=== PATIENT | female | born 1950 | race Asian ===

== ENCOUNTER 2017-05-18 19:14 | Emergency (ER) | payer OTHER ==
[2017-05-18 19:40] LABS: ALKALINE PHOSPHATASE 123 U/L (38-126); AST 368 U/L (14-36); BILIRUBIN, TOTAL 0.4 mg/dL (0.2-1.3); BLOOD UREA NITROGEN 11 mg/dL (7-17); CALCIUM 9.9 mg/dL (8.4-10.2); CHLORIDE 102 mmol/L (98-107); EST GLOMERULAR FILTRATION RATE 52 mL/min; LIPASE 275 U/L (23-300); SODIUM 141 mmol/L (137-145)
[2017-05-18 19:42] LABS: GLUCOSE 350 mg/dL (70-100); NEUTROPHILS# 0.9 X 10^3uL (2.6-6.7)
[2017-05-18 19:45] LABS: BASOPHILS 0.5 % (0.0-2.0); EOSINOPHILS 0.4 % (0.0-6.0); HEMATOCRIT 40.4 % (36.0-48.0); HEMOGLOBIN 13.1 g/dL (12.0-16.0); INR 1.1; LYMPHOCYTES# 6.8 X 10^3uL (0.8-3.8); MEAN CELL VOLUME 93.7 fL (80.0-100.0); MEAN CORPUS. HGB CONCENTRATION 32.5 g/dL (32.0-36.0); MEAN CORPUSCULAR HEMOGLOBIN 30.4 pg (29.0-35.0); MONOCYTES 9.5 % (2.0-10.0); MONOCYTES# 0.8 X 10^3uL (0.2-1.0); NEUTROPHILS 10.7 % (54.0-75.0); PLATELET COUNT 230 X 10^3uL (130-440); RED BLOOD COUNT 4.31 X 10^6uL (4.20-6.10); RED CELL DISTRIBUTION WIDTH 13.5 % (11.5-14.5); WHITE BLOOD COUNT 8.5 X 10^3uL (3.9-10.7)
[2017-05-18 19:55] LABS: LYMPHOCYTES 78.9 % (20.0-40.0)
[2017-05-18] MEDS ORDERED: FENTANYL 100 MCG/2 ML VIAL ONE (19:56)
[2017-05-18 20:00] LABS: ARTERIAL BLD GAS O2 SATURATION 52 % (95-98); ARTERIAL BLOOD GAS BASE EXCESS -22 (-2-+3); ARTERIAL BLOOD GAS HCO3 14.3 mmol/L (22-26); ARTERIAL BLOOD GAS PCO2 > 100 mmHg (35-45); ARTERIAL BLOOD GAS PO2 58 mmHg (80-105); ARTERIAL BLOOD GAS TOTAL CO2 18 mmHg (23-27)
[2017-05-18] MEDS ORDERED: EPINEPHrine 1:10,000 1 MG/10 ML SYR ONE (20:31)
--- NOTE | 2017-05-18 20:33 | ER PHYSICIAN DOCUMENTATION ---
Physician Documentation [facility] Name:Elizabeth Hernandez Age:66 yrs Sex:Female :1950 Arrival Date:05/18/2017 Time:19:14 BedTrauma-A Private MD: Antonio Thomas Disposition: 05/18 22:01 Critical Care:. graciela Disposition: 05/18/17 20:04 Transfer ordered to [facility]. Diagnosis is Cardiac Arrest. - Reason for transfer: Specialty. - Accepting physician is Dr. De Leon. - Condition is Critical. - Problem is new. - Symptoms have improved. COBRA Form completed? Yes Transfer - Mode of Transportation Helicopter HPI: 19:39 This 66 yrs old Female presents to ER via EMS with complaints of jm Unresponsive. 19:39 Preceding the arrest, the patient collapsed, was dyspneic. The arrest occurred on a street. in a car. Pre-hospital course: The arrest was witnessed by family. Bystanders at the scene did not perform CPR. EMS care prior to arrival: intubation Isaias. oxygen, ACLS details: Initial rhythm was PEA. The presenting rhythm is normal sinus rhythm. Medications given by EMS prior to arrival - Epinephrine IV x 3 doses. The patient has not experienced similar symptoms in the past. The patient has not recently seen a physician. Pt was in the bathroom, walked out and collapsed in the car. She was very sweaty c/o of SOB/CP. Pt soon stopped breathing, . Historical: - Allergies: No known drug Allergies; - Home Meds: 1. sertaline 2. venlafaxine oral - PMHx: HIGH CHOLESTEROL; THYROID PROBLEM; LUPUS; - PSHx: KNEE SURGERY; SHOULDER SURGERY; - Ebola Screening: : Patient negative for fever greater than or equal to 101.5 degrees Fahrenheit, and additional compatible Ebola Virus Disease symptoms. - Immunization history: Flu Vaccine < 1 year. - Social history: Smoking status: Patient states was never smoker of tobacco. ROS: 19:42 Unable to obtain ROS due to obtunded state, patient is on ventilator, as above in HPI. Exam: 19:42 Constitutional: The patient appears obese, in obvious distress. 19:42 Eyes: Periorbital structures: appear normal, Pupils: equal, round, and reactive to light and accomodation. 19:42 ENT: Mouth: is normal, Dental exam: normal. 19:42 Cardiovascular: Rate: normal, Rhythm: regular, Pulses: no pulse deficits are appreciated. 19:42 Respiratory: Respirations: shallow respirations, that is severe, Breath sounds: are normal. 19:42 Abdomen/GI: Inspection: distension, that is moderate, Bowel sounds: normal, Palpation: abdomen is soft and non-tender. 19:42 Musculoskeletal/extremity: Extremities: grossly normal except: Pulses: are normal with no appreciated deficits. 19:42 Neuro: no movement. unable to examine. Vital Signs: 19:18 BP 127 / 73; Pulse 100; Resp 12; Pulse Ox 90% on 15 lpm ETT ambu; rh 19:30 BP 180 / 100; Pulse 99; Resp 30; Pulse Ox 100% on ETT vent; rh 19:47 BP 119 / 91; Pulse 106; Resp 30; Pulse Ox 100% on 15% FiO2 ETT vent; rh 20:32 BP 100 / 64; Pulse 98; Resp 20; Pulse Ox 93% on 15% FiO2 ETT vent; rh Trauma Score (Adult): 19:20 Eye Response: none(0); Verbal Response: none(0); Motor Response: none(0); Systolic BP: rh None(0); Respiratory Rate: None(0); Estefani Score: 3; Trauma Score: 0 20:20 Eye Response: none(0); Verbal Response: none(0); Motor Response: none(0); Systolic BP: rh > 89 mm Hg(4); Respiratory Rate: 10 to 29 per min(4); Estefani Score: 3; Trauma Score: 8 Procedures: 19:47 Intubation: Ventilated with 100% NRB prior to procedure. O2 saturation prior to procedure was 100 %. Intubated orally using # 4 Solo blade with 7.5 mm ETT. Successful on second attempt. Ventilated with ventilator. Tube secured with ETT rosen Placement verified by CXR, auscultating bilateral breath sounds, Patient tolerated well. MDM: 19:39 Patient medically screened. 20:00 Differential diagnosis: cardiac arrest. Data reviewed: vital signs, nurses notes, old medical records, lab test result(s), EKG, radiologic studies, and as a result, I will *Transfer Patient. Test interpretation: by ED physician or midlevel provider: plain radiologic studies, ECG. Counseling: I had a detailed discussion with the patient and/or guardian regarding: the historical points, exam findings, and any diagnostic results supporting the discharge/admit diagnosis, lab results, radiology results, the need to transfer to another facility. ECG:. Response to treatment: the patient's symptoms have markedly improved after treatment. Physician consultation: Dr De Leon was called at 19:50, was contacted at 19:55, regarding patient's condition. ED course: Pt here after CPR x3 rounds already started. After Rhythm check, pt in NSR w a good BP and agonal respirations. Pt intubated and EKG did not show STEMI. Chopper here to take pt to [facility]. Dr. De Leon has accepted. . 21:10 EKG attached 05/18 19:43 Order name: BASIC METABOLIC PANEL; Complete Time: 20:05 EDKS 05/18 19:43 Order name: ALKALINE PHOSPHATASE; Complete Time: 20:05 [facility] 05/18 19:43 Order name: AST; Complete Time: 20:05 [facility] 05/18 19:43 Order name: BILIRUBIN, TOTAL; Complete Time: 20:05 [facility] 05/18 19:43 Order name: LIPASE; Complete Time: 20:05 [facility] 05/18 19:50 Order name: PROTIME/INR; Complete Time: 20:05 [facility] 05/18 19:56 Order name: CBC AUTO DIF, MDIF/RMOR IF IND; Complete Time: 20:05 [facility] 05/18 20:01 Order name: ARTERIAL BLOOD GAS; Complete Time: 20:05 [facility] 05/19 09:03 Order name: CHEST; [place] [id number] [facility] 05/18 19:29 Order name: EKG - 12 Lead; Complete Time: 19:31 05/18 19:29 Order name: Cardiac Monitoring - Continuous; Complete Time: 19:31 05/18 19:29 Order name: Pulse Ox Continuous; Complete Time: 19:31 05/18 19:29 Order name: Matthew; Complete Time: 19:34 05/18 20:32 Order name: IV large bore X 2; Complete Time: 20:32 rh EC:00 Rhythm is regular with Right bundle branch block. QT interval is normal. No Q waves. T jm waves are Normal. No ST changes noted. Dispensed Medications: : Drug: NS 0.9% 1000 ml; Route: IV; Rate: bolus; Site: right antecubital; rh 20:00 Follow up: IV Status: Completed infusion; IV Intake: 1000ml rh 19:28 Drug: Etomidate (50kg) 10 mg; {Note: ADMINISTERED BY CASE CLOSET ORGANIZER.} Route: IVP; Site: rh left antecubital; 20:29 Follow up: Response: No adverse reaction rh 19:30 Drug: Succinylcholine (ADULT) 1 mg/kg; {Note: ADMINISTERED BY DARIUS LAO RN.} Route: rh IVP; Site: left antecubital; 20:30 Follow up: Response: No adverse reaction rh 19:30 Drug: NS 0.9% 1000 ml; {Note: RIGHT IO .} Route: IV; Rate: bolus; Site: right wrist; rh 20:00 Follow up: IV Status: Completed infusion; IV Intake: 1000ml rh 19:43 Drug: fentaNYL (PF) 100 mcg; {Note: ADMNISTERED BY MELANIE ALLEN IN THE RIGHT AC.} rh Route: IVP; Infused Over: 3 mins; Site: right antecubital; 20:31 Follow up: Response: No adverse reaction rh 19:46 Drug: Vecuronium 0.1 mg/kg; {Note: ADMINISTERED BY MELANIE ALLEN RN ED.} Route: IVP; rh Site: left antecubital; 20:29 Follow up: Response: No adverse reaction rh 19:50 Drug: Sodium Bicarbonate 1 amp; Route: IVP; Site: right antecubital; rh 20:29 Follow up: Response: No adverse reaction rh 20:20 Drug: NS 0.9% 1000 ml; Route: IV; Rate: bolus; Site: left antecubital; rh 20:31 Follow up: IV Status: Infusing continued upon transfer rh 20:22 Drug: NS 0.9% 1000 ml; Route: IV; Rate: bolus; Site: right antecubital; rh 20:31 Follow up: IV Status: Infusing continued upon transfer Critical care time excluding procedures: 22:01 Critical care time: Bedside Care: 60 minutes, Consultation: 20 minutes, Family graciela Intervention: 10 minutes. Total time: 90 minutes Signatures: Antoino Gutiérrez MD MD jm Hofsess, Rachel
--- NOTE | 2017-05-18 20:33 | ER NURSING DOCUMENTATION ---
Nurse's Notes [facility] Name:Elizabeth Hernandez Age:66 yrs Sex:Female :1950 Arrival Date:05/18/2017 Time:19:14 BedTrauma-A Private MD: Diagnosis:Cardiac Arrest Presentation: 05/18 19:26 Presenting complaint: EMS states: PT visiting from [place], she was feeling SOB and rh went into the bathroom. She came out of the bathroom, SOB, diaphoretic, sweaty and c/o chest pain. PT then collapsed on the ground unresponsive and pulseless. Transition of care: Home. 19:26 Acuity: RIK 1 rh 19:26 Method Of Arrival: EMS: 420 rh 19:33 Care prior to arrival: CPR manually performed by EMS. Compressions began at 18:45. rh 20:00 Care prior to arrival: assisted ventilation, oral airway placed, Placed on backboard. rh IV initiated. Oxygen administered. IV Fluids given by EMS NS 500 ml Medication(s) given: 3 rounds of epi. Triage Assessment: 19:36 Neuro: Level of Consciousness is unresponsive, Pupils are non-reactive. Cardiovascular: rh Capillary refill is > 3 seconds. Cardiovascular: Pulses are palpable in right radial artery, right posterior tibial artery, left radial artery and left posterior tibial artery. Respiratory: Airway via oral intubation Trachea midline. GI: Abdomen is obese. Historical: - Allergies: No known drug Allergies; - Home Meds: 1. sertaline 2. venlafaxine oral - PMHx: HIGH CHOLESTEROL; THYROID PROBLEM; LUPUS; - PSHx: KNEE SURGERY; SHOULDER SURGERY; - Ebola Screening: : Patient negative for fever greater than or equal to 101.5 degrees Fahrenheit, and additional compatible Ebola Virus Disease symptoms. - Immunization history: Flu Vaccine < 1 year. - Social history: Smoking status: Patient states was never smoker of tobacco. Screenin:40 Infectious Disease Risk Unable to Obtain. Abuse screen: Unable to Obtain. Nutritional rh screening: Unable to Obtain. Assessment: 19:12 Reassessment: COLD BLUE PAGED OVERHEAD. rh 19:16 CPR assessment: unresponsive, no respiratory effort, intubated, Ambu ventilation, rh pulses present w/ compressions. Cardiac rhythm is PEA. 19:19 Reassessment: PADS PLACED ON THE PATIENT. rh 19:53 Reassessment: PT family at bedside. rh Vital Signs: 19:18 BP 127 / 73; Pulse 100; Resp 12; Pulse Ox 90% on 15 lpm ETT ambu; rh 19:30 BP 180 / 100; Pulse 99; Resp 30; Pulse Ox 100% on ETT vent; rh 19:47 BP 119 / 91; Pulse 106; Resp 30; Pulse Ox 100% on 15% FiO2 ETT vent; rh 20:32 BP 100 / 64; Pulse 98; Resp 20; Pulse Ox 93% on 15% FiO2 ETT vent; rh Trauma Score (Adult): 19:20 Eye Response: none(0); Verbal Response: none(0); Motor Response: none(0); Systolic BP: rh None(0); Respiratory Rate: None(0); Powers Score: 3; Trauma Score: 0 20:20 Eye Response: none(0); Verbal Response: none(0); Motor Response: none(0); Systolic BP: rh > 89 mm Hg(4); Respiratory Rate: 10 to 29 per min(4); Powers Score: 3; Trauma Score: 8 ED Course: 19:15 Oxygen O2 via 15L per ambu bag and Isaias Tube. rh 19:15 Notified ED Physician of patient's arrival and chief complaint. Dr. Gutiérrez notified. rh 19:18 Patient arrived in ED. jl 19:18 Maintain field IV. Gauge & site: IO TO THE LEFT TIB. rh 19:20 ekg monitor tech on. Pulse ox on. NIBP on. rh 19:21 Inserted peripheral IV: 20 gauge in right in left antecubital area and blood collected. rh 19:22 EKG done. (by ED staff). Reviewed by Antonio Gutiérrez MD. rh 19:25 Maria DeL os Santos is Primary Nurse. rh 19:27 Triage completed. rh 19:28 Matthew cath inserted 16 Fr. To gravity drainage. Urine specimen collected. rh 19:30 Assist ventilation with ventilator. rh 19:31 Assist Provider PLACEMENT OF ET TUBE size 7.5 and 24 at the teeth. rh 19:39 Antonio Gutiérrez MD is Attending Physician. jm 19:40 Valuables Given to family. Patient has correct armband on for positive identification. rh Placed in gown. Bed in low position. Side rails up X 1. 19:45 NGT inserted 18 Fr. via left nare. Returned gastric contents. rh 21:10 EKG attached rh Administered Medications: 19:22 Drug: NS 0.9% 1000 ml; Route: IV; Rate: bolus; Site: right antecubital; rh 20:00 Follow up: IV Status: Completed infusion; IV Intake: 1000ml rh 19:28 Drug: Etomidate (50kg) 10 mg; {Note: ADMINISTERED BY CASE FOOD CART ATTENDANT.} Route: IVP; Site: rh left antecubital; 20:29 Follow up: Response: No adverse reaction rh 19:30 Drug: Succinylcholine (ADULT) 1 mg/kg; {Note: ADMINISTERED BY DARIUS LAO RN.} Route: rh IVP; Site: left antecubital; 20:30 Follow up: Response: No adverse reaction rh 19:30 Drug: NS 0.9% 1000 ml; {Note: RIGHT IO .} Route: IV; Rate: bolus; Site: right wrist; rh 20:00 Follow up: IV Status: Completed infusion; IV Intake: 1000ml rh 19:43 Drug: fentaNYL (PF) 100 mcg; {Note: ADMNISTERED BY MELANIE ALLEN IN THE RIGHT AC.} rh Route: IVP; Infused Over: 3 mins; Site: right antecubital; 20:31 Follow up: Response: No adverse reaction rh 19:46 Drug: Vecuronium 0.1 mg/kg; {Note: ADMINISTERED BY MELANIE ALLEN ASSISTANT GM OF CONTENT & DELIVERY.} Route: IVP; rh Site: left antecubital; 20:29 Follow up: Response: No adverse reaction rh 19:50 Drug: Sodium Bicarbonate 1 amp; Route: IVP; Site: right antecubital; rh 20:29 Follow up: Response: No adverse reaction rh 20:20 Drug: NS 0.9% 1000 ml; Route: IV; Rate: bolus; Site: left antecubital; rh 20:31 Follow up: IV Status: Infusing continued upon transfer rh 20:22 Drug: NS 0.9% 1000 ml; Route: IV; Rate: bolus; Site: right antecubital; rh 20:31 Follow up: IV Status: Infusing continued upon transfer rh Intake: 20:00 IV: 1000ml; Total: 1000ml. rh 20:00 IV: 1000ml; Total: 2000ml. rh Output: 20:10 Urine: 300ml (Matthew); Total: 300ml. rh Outcome: 20:04 ER care complete, transfer ordered by MD. owens 20:32 Patient left the ED. rh 20:32 Transferred: Patient will be transferred to: [facility] [place]. Facility rh Acceptance Time: May 18, 2017 at 20:13 Patient's face sheet was faxed to accepting facility. Face Sheet included patient's name, address, age, gender, contact information and insurance information. [place] by: [facility] [place] [facility]. Report called to: Rosa Walker RN IN ICU BED 8 Nurse and Physician Charting and Notes were sent to Accepting Facility. All tests and/or procedures with results, if applicable, were sent to accepting facility. 20:32 Condition: stable 20:32 Instructed on need for transfer Signatures: Antonio Gutiérrez MD MD jm Hofsess, Rachel rh Lietz, Jeff jl
[2017-05-18] MEDS ORDERED: SUCCINYLCHOLINE CHLORIDE 200 MG/10 ML VIAL ONE (21:12)
[2017-05-18] MEDS ORDERED: VECURONIUM BROMIDE 10 MG/10 ML VIAL IV ONE (21:12)
[2017-05-18] MEDS ORDERED: WATER FOR INJECTION 10 ML ONE (21:12)
[2017-05-18] MEDS ORDERED: ETOMIDATE 40 MG/20 ML VIAL IV ONE (21:12)
--- NOTE | 2017-05-19 08:18 | RADIOLOGY REPORT ---
Initial limited portable views of the chest at 1938 hours and 1939 hours demonstrate nasogastric tube extending into the expected region of the stomach. Heart and vessels are grossly unremarkable. The lung ross are grossly clear. Defibrillator pad obscures the central mediastinal structures preventing precise determination of the position of the endotracheal tube. Additional view of the chest at 1951 hours demonstrates the tip of the endotracheal tube extending beyond the trish into the right mainstem bronchus. There has been interval development of left lung atelectasis. IMPRESSION: 1. Nasogastric tube in appropriate position. 2. Upon completion of the initial films Dr. Gutiérrez was advised of the limitations in evaluating the endotracheal tube placement. The repeat film was obtained following removal of the cardiac pad. The findings of the film at 1951 hours was personally reviewed with Dr. Gutiérrez at approximately 1954 hours. [facility]
== END 2017-05-18 20:33 | disposition short-term general hospital (02) ==
LOC: ER 19:14
DX: I46.9 Cardiac arrest, cause unspecified (principal); R06.00 Dyspnea, unspecified; R00.0 Tachycardia, unspecified; I45.10 Unspecified right bundle-branch block; R40.20 Unspecified coma; R61 Generalized hyperhidrosis; E66.9 Obesity, unspecified; R40.2432 Glasgow coma scale score 3-8, at arrival to emergency department; R79.81 Abnormal blood-gas level; Z79.899 Other long term (current) drug therapy; Z99.89 Dependence on other enabling machines and devices; Z99.81 Dependence on supplemental oxygen; Z74.3 Need for continuous supervision
CPT/HCPCS: 31500; 51702; 71010; 80048; 82247; 82803; 83690; 84075; 84450; 85025; 85610; 92950; 93005; 96361; 96374; 96375; 99291; A0420; A0425; A0427; J3010